=== PATIENT | female | born 1955 | race Caucasian/White ===

== ENCOUNTER 2016-09-06 14:04 | Outpatient (CLI) | payer MEDICARE | END 2016-09-06 14:05 | disposition home or self-care (01) | DX: N85.00 Endometrial hyperplasia, unspecified (principal); R93.8 Abnormal findings on diagnostic imaging of other specified body structures; D25.9 Leiomyoma of uterus, unspecified ==

== ENCOUNTER 2016-10-05 13:01 | Outpatient (CLI) | payer MEDICARE | END 2016-10-05 13:02 | disposition home or self-care (01) | DX: R74.8 Abnormal levels of other serum enzymes (principal) ==

== ENCOUNTER 2017-02-07 10:42 | Outpatient (CLI) | payer MEDICARE ==
[2017-02-07 12:56] LABS: HEMOGLOBIN A1C 0.4 g/dL
== END 2017-02-07 10:43 | disposition home or self-care (01) ==
LOC: LAB.N 10:42
PROVIDERS: ATTEND Nurse Practitioner Primary Care
DX: E11.65 Type 2 diabetes mellitus with hyperglycemia (principal)
CPT/HCPCS: 36415; 82947; 83036

== ENCOUNTER 2017-05-27 14:25 | Outpatient (CLI) | payer MEDICARE ==
--- NOTE | 2017-05-30 10:31 | Ultrasound Report ---
PELVIC ULTRASOUND: 05/27/2017 CLINICAL INDICATION: Endometrial hyperplasia. TECHNIQUE: Transabdominal pelvic ultrasound performed for global evaluation. Transvaginal pelvic ultr asound performed for detailed evaluation. Real-time scanning performed and static images obtained. COMPARISON: 09/06/2016. FINDINGS: The examination is markedly limited by patient's habitus and previous stroke, causing diff iculty with positioning. The uterus is anteverted, measuring 6.9 x 5.0 x 3.5 cm. The endometrium measures 6 mm where visualize d. The previously noted leiomyoma is no longer appreciated. Neither ovary was confidently identified on transabdominal or transvaginal scanning. No free fluid is seen. IMPRESSION: THICKENED ENDOMETRIUM FOR A POSTMENOPAUSAL PATIENT. NONVISUALIZATION OF BOTH OVARIES AND THE PREVIOUSLY NOTED LEIOMYOMA. JOB #: [id number] EXT JOB #:[id number]
== END 2017-05-27 14:26 | disposition home or self-care (01) ==
LOC: DI 14:25
PROVIDERS: ATTEND Obstetrics & Gynecology
DX: R93.8 Abnormal findings on diagnostic imaging of other specified body structures (principal)
CPT/HCPCS: 76830; 76856

== ENCOUNTER 2017-11-02 11:21 | Outpatient (CLI) | payer MEDICARE ==
[2017-11-02 14:56] LABS: HB2 TOTAL 12.8 g/dL; HEMOGLOBIN A1C 0.43 g/dL; HEMOGLOBIN A1C % 5.2 % (4.6-6.2)
== END 2017-11-02 11:22 | disposition home or self-care (01) ==
LOC: LAB.R 11:21
PROVIDERS: ATTEND Nurse Practitioner Primary Care
DX: E11.9 Type 2 diabetes mellitus without complications (principal); J02.9 Acute pharyngitis, unspecified
CPT/HCPCS: 83036; 87070; 87430

== ENCOUNTER 2017-12-23 08:50 | Outpatient (CLI) | payer MEDICARE ==
[2017-12-23 12:30] LABS: BASOPHILS % (AUTO) 0.3 %; EOSINOPHILS % (AUTO) 0.1 %; HGB - HEMOGLOBIN 11.6 g/dL (12.0-16.0); LYMPHOCYTES # (AUTO) 1.5 10^3/uL (1.5-3.5); LYMPHOCYTES % (AUTO) 39.6 %; MEAN CORPUSCULAR HEMOGLOBIN 29.9 pg (27.0-31.0); MEAN CORPUSCULAR HGB CONC 33.3 g/dL (32.0-36.0); MEAN CORPUSCULAR VOLUME 89.7 fL (81.0-99.0); MONOCYTES # (AUTO) 0.3 10^3/uL (0.0-1.0); MONOCYTES % (AUTO) 8.1 %; NEUTROPHILS # (AUTO) 1.9 10^3/uL (1.5-6.6); NEUTROPHILS % (AUTO) 51.9 %; PLT - PLATELET COUNT 158 10^3/uL (130-450); RED BLOOD COUNT 3.89 10^6/uL (4.20-5.40); RED CELL DISTRIBUTION WIDTH 14.9 % (12.0-15.0); WHITE BLOOD COUNT 3.7 x10^3/uL (4.8-10.8)
[2017-12-23 12:56] LABS: ALBUMIN/GLOBULIN RATIO 1.4 (1.0-2.2); ALKALINE PHOSPHATASE 125 IU/L (42-121); ALT ALANINE AMINOTRANSFERASE 17 IU/L (10-60); AST ASPARTATE AMINOTRANSFERASE 13 IU/L (10-42); BILIRUBIN,TOTAL 0.6 mg/dL (0.2-1.0); BUN - BLOOD UREA NITROGEN 20 mg/dL (6-20); CALCIUM 8.8 mg/dL (8.5-10.3); CARBON DIOXIDE - CO2 26 mmol/L (21-32); CHLORIDE 105 mmol/L (101-111); CHOLESTEROL 134 mg/dL; CREATININE 0.7 mg/dL (0.4-1.0); GFR - MDRD 85 (>89); GLUCOSE 82 mg/dL (70-100); HDL CHOLESTEROL 44 mg/dL; LDL CHOLESTEROL,CALCULATED 69 mg/dL; LDL/HDL RATIO 1.6 (<4.4); SODIUM 137 mmol/L (135-145); TOTAL PROTEIN 6.9 g/dL (6.7-8.2); VLDL CHOLESTEROL 21 mg/dL
[2017-12-23 13:19] LABS: HB2 TOTAL 12.7 g/dL; HEMOGLOBIN A1C 0.49 g/dL; HEMOGLOBIN A1C % 5.7 % (4.6-6.2)
== END 2017-12-23 08:51 | disposition home or self-care (01) ==
LOC: LAB.R 08:50
PROVIDERS: ATTEND Nurse Practitioner Primary Care
DX: E11.9 Type 2 diabetes mellitus without complications (principal); G47.33 Obstructive sleep apnea (adult) (pediatric); I10 Essential (primary) hypertension; E03.9 Hypothyroidism, unspecified; E78.5 Hyperlipidemia, unspecified; Z79.899 Other long term (current) drug therapy
CPT/HCPCS: 80053; 80061; 83036; 83721; 84443; 85025

== ENCOUNTER 2018-01-25 12:50 | Outpatient (CLI) | payer MEDICARE ==
--- NOTE | 2018-01-29 10:57 | DEXA Report ---
DEXA: 01/25/2018 CLINICAL INDICATION: Postmenopausal. TECHNIQUE: Dual energy x-ray absorptiometry (DXA) was performed on a [employer] system. Regions measured are the AP spine, femoral neck, and, if needed, forearm. COMPARISON: 06/21/2016. In accordance with the International Society for Clinical Densitometry (ISCD) guidelines, data from previous exams may be reanalyzed using current recommendations and techniques. This is done to allow a more accurate basis for comparison with the current study. FINDINGS Data for the lumbar spine is as follows: REGION BMD (g/cm/cm) T-SCORE Z-SCORE L1 1.381 2.1 2.2 L2 1.520 2.7 2.7 L3 1.393 1.6 1.7 L4 1.567 3.1 3.1 L1-L4 1.471 2.4 2.5 NOTE: All evaluable vertebrae are used for classification. The data for the hip is as follows: REGION BMD (g/cm/cm) T-SCORE Z-SCORE Neck 0.851 -1.3 -0.8 TOTAL 0.916 -0.7 -0.6 NOTE: The femoral neck or total proximal femur, whichever is lowest, is used for classification. DEXA RESULTS SUMMARY: Spine 3 SCAN DATE AGE BMD T-SCORE BMD CHANGE VS BASELINE BMD CHANGE VS PREVIOUS 01/25/2018 60.6 1.471 -- -0.103* -6.5* 06/21/2016 59.0 1.574 -- -- -- * Denotes significant change at the 95% confidence level. Denotes dissimilar scan types or analysis methods. DEXA RESULTS SUMMARY: Total hip 3 SCAN DATE AGE BMD T-SCORE BMD CHANGE VS BASELINE BMD CHANGE VS PREVIOUS 01/25/2018 60.6 0.916 -- -0.069* -7.0* 06/21/2016 61.0 0.985 -- -- -- * Denotes significant change at the 95% confidence level. Denotes dissimilar scan types or analysis methods. IMPRESSION 1. WHO CLASSIFICATION BASED ON THE INTERNATIONAL REFERENCE STANDARD IS OSTEOPENIA (REFERENCE LEFT FEMORAL NECK). FRACTURE RISK IS INCREASED. 2. THERE HAS BEEN STATISTICALLY SIGNIFICANT INTERVAL DECREASE IN BONE MINERAL DENSITY OF THE LEFT HIP AND LUMBAR SPINE FROM 06/21/2016. RECOMMENDATION: Patients with diagnosis of osteoporosis or osteopenia should have regular bone mineral density assessment. For those eligible for Medicare, routine testing is allowed once every 2 years. Testing frequency can be increased for patients who have rapidly progressing disease or for those who are receiving medical therapy to restore bone mass. COMMENT World Health Organization (WHO) definitions for osteoporosis and osteopenia: NORMAL BMD: T-score at 1.0 or higher, fracture risk is low. OSTEOPENIA BMD: T-score between 1.0 and -2.5, fracture risk is increased. OSTEOPOROSIS BMD: T-score at 2.5 or lower, fracture risk high. National Osteoporosis Foundation recommends: 1. Obtain adequate dietary calcium (at least 1200 mg per day) and vitamin D (400 -800 international units per day). 2. Participate, as appropriate, in regular weightbearing and muscle- strengthening exercise. 3. Avoid tobacco use and reduce alcohol and caffeine intake. 4. For more detailed information see the website at www.NOF.org. TD: 01/25/2018 15:20 CHRISTINA
== END 2018-01-25 12:51 | disposition home or self-care (01) ==
LOC: DI 12:50
PROVIDERS: ATTEND Nurse Practitioner Primary Care
DX: Z13.820 Encounter for screening for osteoporosis (principal); Z78.0 Asymptomatic menopausal state; M85.852 Other specified disorders of bone density and structure, left thigh
CPT/HCPCS: 77080

== ENCOUNTER 2018-01-25 12:51 | Outpatient (CLI) | payer MEDICARE ==
--- NOTE | 2018-01-26 17:05 | Mammography Report ---
DIGITAL SCREENING MAMMOGRAM: 01/25/2018 CLINICAL INDICATION: A 62-year-old with history of late childbearing, family history of breast cancer for screening. TECHNIQUE: Routine CC and MLO projections were obtained of the breasts. COMPARISON: 06/21/2016, 05/13/2011, 12/16/2007. FINDINGS: The breasts again demonstrate scattered fibroglandular densities. Positioning on the right side is limited by the patient's previous stroke. Punctate, typically benign calcifications are present. No suspicious masses, clustered microcalcifications, or regions of architectural distortion are identified. IMPRESSION: BENIGN FINDINGS. RECOMMENDATION: Routine annual screening unless otherwise clinically indicated. BIRADS category 2 benign findings. STANDARD QUALIFYING STATEMENTS 1. This examination was reviewed with the aid of Computed-Aided Detection (CAD). 2. A negative or benign imaging report should not delay biopsy if clinically suspicious findings are present. Consider surgical consultation if warranted. More than 5% of cancers are not identified by imaging. 3. Dense breasts may obscure an underlying neoplasm. TD: 01/26/2018 15:12
== END 2018-01-25 12:52 | disposition home or self-care (01) ==
LOC: DI 12:51
PROVIDERS: ATTEND Nurse Practitioner Primary Care
DX: Z12.31 Encounter for screening mammogram for malignant neoplasm of breast (principal); Z80.3 Family history of malignant neoplasm of breast
CPT/HCPCS: 77067

== ENCOUNTER 2018-02-14 08:00 | Outpatient (CLI) | payer MEDICARE | END 2018-02-14 23:59 | LOC: LAB.R 08:00 | PROVIDERS: ATTEND Nurse Practitioner Primary Care | DX: E03.9 Hypothyroidism, unspecified (principal); Z51.81 Encounter for therapeutic drug level monitoring | CPT/HCPCS: 84443 ==

== ENCOUNTER 2018-04-21 09:50 | Outpatient (CLI) | payer MEDICARE | END 2018-04-21 09:51 | disposition home or self-care (01) | LOC: LAB.R 09:50 | PROVIDERS: ATTEND Nurse Practitioner Primary Care | DX: E03.9 Hypothyroidism, unspecified (principal) | CPT/HCPCS: 84443 ==

== ENCOUNTER 2018-09-27 08:00 | Outpatient (CLI) | payer MEDICARE ==
[2018-09-27 13:30] LABS: BASOPHILS % (AUTO) 0.1 %; HGB - HEMOGLOBIN 12.1 g/dL (12.0-16.0); LYMPHOCYTES # (AUTO) 1.2 10^3/uL (1.5-3.5); LYMPHOCYTES % (AUTO) 24.1 %; MEAN CORPUSCULAR HEMOGLOBIN 29.9 pg (27.0-31.0); MEAN CORPUSCULAR HGB CONC 34.4 g/dL (32.0-36.0); MEAN CORPUSCULAR VOLUME 86.8 fL (81.0-99.0); MEAN PLATELET VOLUME 8.9 fL (7.9-10.8); MONOCYTES # (AUTO) 0.4 10^3/uL (0.0-1.0); MONOCYTES % (AUTO) 7.3 %; NEUTROPHILS # (AUTO) 3.3 10^3/uL (1.5-6.6); NEUTROPHILS % (AUTO) 68.5 %; PLT - PLATELET COUNT 206 10^3/uL (130-450); RED BLOOD COUNT 4.04 10^6/uL (4.20-5.40); WHITE BLOOD COUNT 4.9 x10^3/uL (4.8-10.8)
[2018-09-27 13:59] LABS: ALBUMIN 3.7 g/dL (3.2-5.5); ALBUMIN/GLOBULIN RATIO 1.2 (1.0-2.2); ALKALINE PHOSPHATASE 165 IU/L (42-121); ALT ALANINE AMINOTRANSFERASE 16 IU/L (10-60); AST ASPARTATE AMINOTRANSFERASE 16 IU/L (10-42); BILIRUBIN,TOTAL 0.5 mg/dL (0.2-1.0); BUN - BLOOD UREA NITROGEN 19 mg/dL (6-20); CALCIUM 8.8 mg/dL (8.5-10.3); CARBON DIOXIDE - CO2 27 mmol/L (21-32); CHLORIDE 100 mmol/L (101-111); CHOL/HDL RATIO 2.8 (<4.4); CHOLESTEROL 117 mg/dL; CREATININE 0.9 mg/dL (0.4-1.0); GFR - MDRD 64 (>89); GLUCOSE 89 mg/dL (70-100); HDL CHOLESTEROL 42 mg/dL; LDL CHOLESTEROL,CALCULATED 60 mg/dL; LDL/HDL RATIO 1.4 (<4.4); SODIUM 138 mmol/L (135-145); TOTAL PROTEIN 6.7 g/dL (6.7-8.2); VLDL CHOLESTEROL 15 mg/dL
[2018-09-27 14:06] LABS: HB2 TOTAL 12.3 g/dL; HEMOGLOBIN A1C 0.43 g/dL; HEMOGLOBIN A1C % 5.4 % (4.6-6.2)
== END 2018-09-27 23:59 | disposition home or self-care (01) ==
LOC: LAB.R 08:00
PROVIDERS: ATTEND Nurse Practitioner Primary Care
DX: E78.5 Hyperlipidemia, unspecified (principal); Z51.81 Encounter for therapeutic drug level monitoring; E03.9 Hypothyroidism, unspecified; I10 Essential (primary) hypertension; D64.9 Anemia, unspecified
CPT/HCPCS: 80053; 80061; 83036; 83721; 84443; 85025

== ENCOUNTER 2019-02-07 20:41 | Outpatient (CLI) | payer MEDICARE | END 2019-02-07 20:42 | disposition critical access hospital (66) | LOC: EMS 20:41 | PROVIDERS: ATTEND Surgery | DX: M54.5 Low back pain (principal); R20.2 Paresthesia of skin | CPT/HCPCS: A0425; A0429 ==

== ENCOUNTER 2019-02-07 21:02 | Emergency (ER) | payer MEDICARE ==
--- NOTE | 2019-02-07 21:11 | ED Physician Documentation ---
PD HPI BACK PAIN - Stated complaint Stated Complaint: BACK PAIN - History obtained from History obtained from: Patient - History of Present Illness Timing - onset: How many weeks ago (1) Timing - duration: Weeks (1) Timing - details: Gradual onset Pain level now: 10 Location: Lower, Right Quality: Pain, Spasm Associated symptoms: No: Fever, Weakness, Numbness, Incontinent of urine, Incontinent of stool Improves with: Nothing Similar symptoms before: No diagnosis Recently seen: Not recently seen - Additional information Additional information: This is a 63-year-old woman who was brought in by ambulance for pain in her right lower back and she says she has "sciatica most likely". She is been having pain for about a week but it just got progressively more severe and to night she went to sit down in her chair and the "sit down muscles" just would not work she cannot collapsed backwards into the chair. She was unable to get back up and called the ambulance to bring her to the ER. She has not taken anything at home for the pain or iced it. She had a stroke in 2011 that left her right upper extremity "useless". She normally walks with a cane at home but is having difficulty managing that and has not even been able to get up to get something to drink. She feels like she is a little bit dehydrated because of that. She has had recurrent issues with her back that she is been prescribed NSAIDs and codeine for in the past but she denies ever having had any imaging studies. No new injury to her lower back. She has had no urinary or stool incontinence and denies any dysuria. 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 - Present Medications Home Medications: Ambulatory Orders Medication Instructions Recorded Confirmed Citalopram [CeleXA] 20 mg PO DAILY 11/03/13 08/22/14 Levothyroxine [Synthroid] 112 mcg PO QDAC 11/03/13 08/22/14 Lisinopril [Prinivil] 20 mg PO DAILY 11/03/13 08/22/14 Metformin HCl [Fortamet] 500 mg PO 3-4XD 11/03/13 08/22/14 Atorvastatin [Lipitor] 20 mg PO DAILY 08/22/14 08/22/14 Promethazine [Phenergan] 25 mg PO Q6H PRN #10 tab 08/22/14 Tamsulosin [Flomax] 0.4 mg PO DAILY #5 capsule 08/22/14 oxyCODONE/ACET 5/325 [Percocet 5 1 each PO Q4-6H PRN #15 tablet 08/22/14 mg/325 mg] Oxycodone HCl/Acetaminophen 1 - 2 each PO Q6H PRN #10 tablet 02/07/19 [Percocet 5-325 mg Tablet] - Allergies Allergies/Adverse Reactions: Allergies Allergy/AdvReac Type Severity Reaction Status Date / Time No Known Drug Allergies Allergy Verified 02/07/19 21:17 - Living Situation Living Situation: reports: Alone Living Arrangement: reports: At home - Social History Does the pt smoke?: No Smoking Status: Never smoker Does the pt drink ETOH?: No Does the pt have substance abuse?: No - Immunizations Immunizations are current?: Yes - POLST Patient has POLST: No PD ED PE NORMAL - Vitals Vital signs reviewed: Yes (Obese 63-year-old woman who moans out in any pain with any movement of the ) - General General: Alert and oriented X 3, Well developed/nourished - HEENT HEENT: Atraumatic - Cardiac Cardiac: RRR, Strong equal pulses - Respiratory Respiratory: No respiratory distress - Abdomen Abdomen: Other (Obese) - Back Back: Other (There is tenderness around the right SI joint and in the right lumbar paraspinal muscles) - Derm Derm: Normal color, Warm and dry, No rash - Extremities Extremities: No deformity, No edema - Neuro Neuro: Alert and oriented X 3, Normal speech, Other (Does not move the right upper extremity. She is able to dorsiflex the great toes bilaterally.Dorsiflexion of the right foot elicits pain in the lower back and limits the exam.). No: No sensory deficit Results - Vitals Vitals: Vital Signs - 24 hr 02/07/19 21:14 Temperature 36.0 C L Heart Rate 83 Respiratory 16 Rate Blood Pressure 154/65 H O2 Saturation 97 Oxygen O2 Source Room air - Labs Labs: Laboratory Tests 02/07/19 23:36 Urine Color DARK YELLOW Urine Clarity HAZY Urine pH 6.0 Ur Specific [place] 1.025 Urine Protein TRACE Urine Glucose (UA) NEGATIVE Urine Ketones TRACE Urine Occult Blood TRACE-INTA Urine Nitrite NEGATIVE Urine Bilirubin NEGATIVE Urine Urobilinogen 1 (NORMAL) Ur Leukocyte Esterase MODERATE H Urine RBC 6-10 H Urine WBC 11-25 H Ur Squamous Epith Cells MOD Squamous H Urine Bacteria Few Urine Mucus Few Strands Ur Microscopic Review INDICATED Urine Culture Comments NOT INDICATED PD MEDICAL DECISION MAKING - ED course ED course: Patient was given 60 of Toradol IM was still having pretty significant pain and I saw that she been prescribed oxycodone in the past several years ago. She tolerated that well and I gave her one oxycodone tablet. She was improved enough and that she was able to get up and ambulate to the bathroom with a walker. Her urinalysis is contaminated and I would discuss this with her doing a catheter specimen but she is not had any symptoms and declines the catheter with plans to follow-up with her primary care provider if she develops any urinary symptoms. Departure - Departure Clinical Impression: Back pain Qualifiers: Back pain location: low back pain Chronicity: acute Back pain laterality: right Sciatica presence: with sciatica Sciatica laterality: sciatica of right side Qualified Code(s): M54.41 - Lumbago with sciatica, right side Condition: Good Instructions: ED Spasm Back No Trauma, ED Sciatica Follow-Up: Aramis Mayorga MD [Primary Care Provider] - Prescriptions: Oxycodone HCl/Acetaminophen [Percocet 5-325 mg Tablet] 1 - 2 each PO Q6H PRN #10 tablet PRN Reason: pain Comments: Take the naproxen as needed daily for pain. Give a prescription for a few oxycodone tablets to take for the acute pain. Ice may also help alleviate some of the discomfort. Follow-up with your primary care provider for further pain management and further work-up as needed. Have the urine tested at your primary care provider's office if you develop any urinary symptoms.
[2019-02-07] MEDS ORDERED: KETOROLAC 60 MG/2 ML VIAL IM STA (21:32)
[2019-02-07] MEDS ORDERED: oxyCODONE 5 MG TABLET PO STA (22:26)
[2019-02-07 23:45] LABS: GLUCOSE, URINE (UA) NEGATIVE (NEGATIVE); KETONES,URINE (UA) TRACE mg/dL (NEGATIVE); LEUKOCYTE ESTERASE, URINE MODERATE (NEGATIVE); NITRITE,URINE NEGATIVE (NEGATIVE); OCCULT BLOOD,URINE TRACE-INTA (NEGATIVE); PROTEIN,URINE TRACE mg/dL (NEGATIVE); UROBILINOGEN,URINE 1 (NORMAL) E.U./dL (NORMAL)
[2019-02-07 23:47] LABS: CLARITY,URINE HAZY (CLEAR)
[2019-02-07 23:50] LABS: BILIRUBIN,URINE NEGATIVE (NEGATIVE); ICTOTEST,URINE NEGATIVE
[2019-02-07 23:54] LABS: BACTERIA,URINE Few /HPF (None Seen); MUCUS,URINE Few Strands; SQUAMOUS EPITHELIAL CELL,UR MOD Squamous (<= Few)
[2019-02-08 00:57] VITALS: BP 134/56
== END 2019-02-08 00:57 | disposition home or self-care (01) ==
LOC: EDUNIT# → ED 21:02
DX: M54.41 Lumbago with sciatica, right side (principal); I69.331 Monoplegia of upper limb following cerebral infarction affecting right dominant side; E66.9 Obesity, unspecified; I10 Essential (primary) hypertension; E11.9 Type 2 diabetes mellitus without complications; Z68.42 Body mass index [BMI] 45.0-49.9, adult; Z79.899 Other long term (current) drug therapy
CPT/HCPCS: 81001; 96372; 99283; A9270; 81003; 87086

== ENCOUNTER 2019-02-09 10:07 | Outpatient (CLI) | payer MEDICARE ==
--- NOTE | 2019-02-09 11:23 | XRAY Report ---
Reason: LUMBAR RADICULOPATHY Procedure Date: 02/09/2019 Accession Number: [id number] / [id number] Procedure: XR - Lumbar Spine 2 View CPT Code: FULL RESULT: EXAM: LUMBOSACRAL SPINE RADIOGRAPHY EXAM DATE: 02/09/2019 10:59 AM. CLINICAL HISTORY: LUMBAR RADICULOPATHY. COMPARISONS: None. TECHNIQUE: 3 views. FINDINGS: Alignment: Normal lordosis. Mild levoconvex scoliosis. Bones: Five [id number] lumbar vertebral bodies are present. No fractures or bone lesions. L5-S1 transitional vertebra. Disks: No significant disk height narrowing. No subluxation. Facets: Bilateral L4-L5 and L5-S1 facet arthropathy. Sacroiliac Joints: Unremarkable. Soft Tissues: Radiopaque lower pole left renal calculus. IMPRESSION: 1. No compression fracture. 2. Mild levoconvex lumbar scoliosis. 3. Multilevel facet arthropathy without significant degenerative disk disease radiopaque right renal calculus RADIA
== END 2019-02-09 10:08 | disposition home or self-care (01) ==
LOC: DI 10:07
PROVIDERS: ATTEND Family Medicine
DX: M47.816 Spondylosis without myelopathy or radiculopathy, lumbar region (principal); M41.9 Scoliosis, unspecified
CPT/HCPCS: 72100

== ENCOUNTER 2019-06-05 10:48 | Outpatient (CLI) | payer MEDICARE ==
[2019-06-05 11:14] LABS: BASOPHILS % (AUTO) 0.1 %; HGB - HEMOGLOBIN 12.2 g/dL (12.0-16.0); LYMPHOCYTES # (AUTO) 1.6 10^3/uL (1.5-3.5); LYMPHOCYTES % (AUTO) 22.9 %; MEAN CORPUSCULAR HEMOGLOBIN 28.4 pg (27.0-31.0); MEAN CORPUSCULAR HGB CONC 31.3 g/dL (32.0-36.0); MEAN CORPUSCULAR VOLUME 90.7 fL (81.0-99.0); MEAN PLATELET VOLUME 10.6 fL (7.9-10.8); MONOCYTES # (AUTO) 0.5 10^3/uL (0.0-1.0); MONOCYTES % (AUTO) 6.9 %; NEUTROPHILS # (AUTO) 4.7 10^3/uL (1.5-6.6); NEUTROPHILS % (AUTO) 69.7 %; PLT - PLATELET COUNT 190 10^3/uL (130-450); RED CELL DISTRIBUTION WIDTH 13.8 % (12.0-15.0); WHITE BLOOD COUNT 6.8 x10^3/uL (4.8-10.8)
[2019-06-05 11:27] LABS: CALCIUM 9.2 mg/dL (8.5-10.3); CREATININE 0.7 mg/dL (0.4-1.0); MAGNESIUM 2.1 mg/dL (1.7-2.8); URIC ACID 7.1 mg/dL (2.6-7.2)
[2019-06-05 11:32] LABS: HB2 TOTAL 12.8 g/dL; HEMOGLOBIN A1C 0.49 g/dL; HEMOGLOBIN A1C % 5.7 % (4.6-6.2)
[2019-06-05 12:02] LABS: THYROID STIMULATING HORMONE 2.89 uIU/mL (0.34-5.60)
[2019-06-05 12:04] LABS: FREE T4 (FREE THYROXINE) 0.89 ng/dL (0.58-1.64)
== END 2019-06-05 10:49 | disposition home or self-care (01) ==
LOC: LAB 10:48
PROVIDERS: ATTEND Family Medicine
DX: E11.9 Type 2 diabetes mellitus without complications (principal); I10 Essential (primary) hypertension; E03.9 Hypothyroidism, unspecified; M79.604 Pain in right leg; N20.0 Calculus of kidney
CPT/HCPCS: 36415; 80048; 83036; 83735; 84439; 84443; 84481; 84550; 85025

== ENCOUNTER 2019-06-06 17:02 | Outpatient (CLI) | payer MEDICARE ==
--- NOTE | 2019-06-07 10:05 | Ultrasound Report ---
Reason: KIDNEY STONES Procedure Date: 06/06/2019 Accession Number: [id number] / [id number] Procedure: US - Retroperitoneal CPT Code: FULL RESULT: EXAM: RENAL ULTRASOUND EXAM DATE: 06/06/2019 05:37 PM. CLINICAL HISTORY: Kidney stones. COMPARISON: None. TECHNIQUE: Real-time scanning was performed with static images obtained. Suboptimal image quality due to the patient's body habitus is noted. FINDINGS: Right Kidney: 11.8 x 5.7 x 8 cm. No shadowing stones, contour-deforming masses, or hydronephrosis. Left Kidney: 13.4 x 6 x 5.2 cm. No shadowing stones, contour-deforming masses, or hydronephrosis. Bladder: Only the left jets seen. The prevoid bladder volume was 68 cc. The postvoid bladder volume was not available as the patient unable to void, likely due to the small prevoid volume. No bladder mass, stone or filling defect identified. Other: None. IMPRESSION: Negative for shadowing renal stone, hydronephrosis or contour-deforming renal mass. RADIA
== END 2019-06-06 17:03 | disposition home or self-care (01) ==
LOC: DI 17:02
PROVIDERS: ATTEND Family Medicine
DX: N20.0 Calculus of kidney (principal)
CPT/HCPCS: 76770

== ENCOUNTER 2019-09-05 11:16 | Outpatient (CLI) | payer MEDICARE ==
[2019-09-05 12:30] VITALS: BP 140/74
--- NOTE | 2019-09-05 12:30 | SLEEP CARE CONSULTATION ---
Information from patient questionnaire entered by Brittney Durbin. I have reviewed and concur with the information entered by Brittney Durbin. This document represents the service I personally performed and the decisions made by me, Beth Arauz, RN, MSN, CLAY ARTIST. History of Present Illness Reason for Visit: New patient, Previously diagnosed sleep apnea (diagnosed about 30 years ago, no sleep studies since. Has lost about 30 pounds since last diagnosed this past year. ), Other (Currently using a ResMed CPAP with humidifier set at a low pressure. It does not have data card. ) Chief Complaint: reports: Unrefreshed sleep, Fatigue, Other (updating old CPAP ) Duration of Symptoms: years even with long sleep periods of 12 hours Usual bedtime: 11:30 Time it takes to fall asleep: 1 hour Snores at night: Yes (even with CPAP / nasal mask 3 months old) Observed to quit breathing while asleep: No (single and sleeps alone ) Number of times waking at night: 2-3 Reasons for waking at night: reports: Snoring, Bathroom, Other (unknown) Toss, Turn, or Twitch while sleeping: No Recalls having dreams: Yes Usually gets out of bed at: 10 am Feels refreshed in the morning: No Morning headache: No Sleepy or fatigued during the day: Yes Ever fallen asleep while driving: No Takes day naps: Yes (most days mid afternoon for about 30minutes ) Dreams during day naps: No Prior sleep studies: Yes (30 years ago) Year and Where: [place] - Parasomnia Symptoms Ever been unable to move upon waking from sleep: No Walks in sleep: No Talks in sleep: No Ever acted out dreams in sleep: No Ever felt weak in the knees when startled or emotional: No Bothered by creepy, crawly, restless sensations in legs: Yes ( nightly relieved with movement now uses OTC restless leg med with relief) Problems with memory or concentration: Yes Subjective Patient concerns: reports: mask discomfort (nasal bridge soreness ). denies: aerophagia, air blowing in eyes (wakes with dry eyes ), mask leak noise, condensation in mask/hose, nasal congestion, dry mouth, nose, throat, epistaxis Observed to snore while using device: No Current pressure setting perceived as: comfortable On therapy, patient: reports: sleeping better, awakening more refreshed, being more awake and alert during the day, more rested overall (but persistent fatigue). denies: drowsiness while driving Initial [place] Sleepiness Scale score: 15 Past Medical History Past Medical History: reports: Hypertension, Diabetes, Hypothyroidism, Depression, Other (stroke 2012 with right side paralysis and weakness, hyperlipidemia ) Social History The patient's occupation is a [employer]. Patient is and lives in [place]. Have you smoked in the past 12 months: No Alcohol use: Yes Alcohol amount and frequency: 1 drink every few months Caffeine use: Yes Caffeine amount and frequency: 3 cups of tea day Family History Family Hx Sleep Apnea: Mother: Snoring ( ) Allergies and Home Medications Known drug allergies: No Home medication list reviewed: Yes Allergy and home medication list: metformin 500mg bid citolapram 20mg daily lisinopril 20mg daily [id number] daily atorvastatin 20mg daily Quiepine HS for sleep Trazadone 50mg HS for sleep melatonin 5mg nightly cinnamon daily cranberry tab daily Vitamin D daily magnesium 200mg daily apple cider vinegar gummies OTC restless leg nightly Review of Systems Cardiovascular: reports: high blood pressure. denies: palpitations, chest pain, irregular heart rate or pulse, leg or foot swelling, have to sleep sitting up, other Respiratory: denies: shortness of breath, wheeze, sputum production, chronic cough, other Gastrointestinal: denies: heartburn, difficulty swallowing, nausea, vomitting, diarrhea, abdominal pain, other Urinary: reports: incontinence. denies: frequency, urgency, impotence, other Neurological: reports: gait or balance problems, other (stroke 2012 ). denies: headaches, seizure, head trauma, disorientation, speech dysfunction, fainting or unconsciousness Psychiatric: reports: depression. denies: Attention Deficit Hyperactivity, anxiety, mood disorder, claustrophobia, other Ear/Nose/Throat: reports: wisdom teeth removed. denies: nasal congestion, sinus problems, nose bleeds, dry mouth/throat, hoarseness, injury to nose, tonsillectomy, other Endocrine: reports: thyroid disease, sluggishness Musculoskeletal: reports: mobility problems. denies: joint pain, neck pain, back pain, joint swelling, muscle pain or cramping, other Immunologic: reports: allergies to food or environment. denies: sneezing, rash, itching, other Physical Exam Blood Pressure: 140/74 Cuff size: long Heart Rate: 63 O2 Saturation: 97 Neck circumference: 17.5 HEENT: No craniofacial malformation Nostrils: patent to airflow Turbinates: swollen Septum: midline Mouth and throat: narrow oropharynx Soft palate: long Hard palate: normal Uvula: normal Uvula visualization: 25% Mallampati Class III Tongue: normal in size Tonsils: small Neck: normal w/o lymphadenopathy or thyromegaly Heart: regular rate and rhythm Lungs: clear bilaterally Abdomen: soft, non-tender, other: (large) Extremities: no edema or clubbing Neurologic: other: (right arm flaccid with no hand tobacco scrap sifter. right foot drop stated but walks with cane well) Impression and Plan 1. Suspected Obstructive Sleep Apnea-Hypopnea Syndrome, as previously diagnosed about 30 years ago in [place]. No sleep studies available and patient thinks it was mild in severity. She has lost abotu 30 pounds since sleep study the past ye ar and is continuing to work on weight loss. She currently uses CPAP at unknown comfortable pressure with a 20 year old CPAP that does not have a data card and probably only has hours of use. She uses a nasal mask that is causing nasal irritation to nasal bridge and buys supplies online at [employer]. Despite nightly use of CPAP of 11-12 hours, she has awakened to snoring, and has frequent awakening during the night, unrefreshed sleep, cognitive impairment, and excessive daytime sleepiness requiring a daily afternoon nap. Narrow oropharynx and obesity are common predisposing factors for obstructive sleep apnea-hypopnea syndrome. I recommend proceeding to polysomnography to re- evaluate to confirm the diagnosis and to assess severity. If the patient has significant sleep disordered breathing, a manual CPAP titration study will also be performed to find the optimal treatment pressure. I informed the patient of what the sleep studies involve and after some discussion, obtained agreement to proceed. The pathophysiology of obstructive sleep apnea-hypopnea syndrome was discussed with the patient and health risks of cardiovascular and cerebrovascular disease if not treated. AASM brochure for obstructive sleep apnea-hypopnea syndrome declined. Risks of drowsy driving discussed in detail and patient advised to avoid long distance driving and to loop puller at the first sign of drowsiness. Patient denies drowsy driving. The goal is once patient apnea is diagnosed, I can update her CPAP and supplies. * Schedule polysomnography +- manual CPAP titration study and return in 1-2 weeks after the study to discuss result and initiate therapy. * Avoid long distance driving or driving when feeling sleepy. * Avoid alcohol, sedative and muscle relaxant around bedtime. * Continue to lose weight. * Review instructions provided by trained office staff on how to prepare for the sleep study. * Return for follow-up after sleep study completed. Time Spent with Patient (minutes): 48 I spent 100% of this visit face to face with the patient with greater than 50% of this was spent time counseling the patient and coordination of care.
== END 2019-09-05 11:17 | disposition home or self-care (01) ==
LOC: SC 11:16
PROVIDERS: ATTEND Nurse Practitioner Family
DX: G47.33 Obstructive sleep apnea (adult) (pediatric) (principal)
CPT/HCPCS: 99204; G0463; 99212

== ENCOUNTER 2019-09-10 20:23 | Outpatient (CLI) | payer MEDICARE | END 2019-09-10 20:24 | disposition home or self-care (01) | LOC: SC 20:23 | PROVIDERS: ATTEND Internal Medicine Pulmonary Disease | DX: G47.33 Obstructive sleep apnea (adult) (pediatric) (principal); G47.61 Periodic limb movement disorder; E66.01 Morbid (severe) obesity due to excess calories; Z68.42 Body mass index [BMI] 45.0-49.9, adult | CPT/HCPCS: 95810 ==

== ENCOUNTER 2019-09-19 16:28 | Outpatient (CLI) | payer MEDICARE ==
[2019-09-19 17:26] VITALS: BP 142/70
--- NOTE | 2019-09-19 17:27 | SLEEP CARE CONSULTATION ---
Information from patient questionnaire entered by Brittney Durbin. I have reviewed and concur with the information entered by Brittney Durbin. This document represents the service I personally performed and the decisions made by me, Beth Arauz, RN, MSN, ROCKET ENGINE TESTER. History of Present Illness Initial [place] Sleepiness Scale score: 15 Current [place] Sleepiness Scale score: 11 Additional HPI information: RONAK JOHN returns for follow up and results of the recently performed polysomnography. I explained the pathophysiology behind obstructive sleep apnea. We then spent quite a bit of time discussing different treatment options. For mild obstructive sleep apnea, surgery and oral appliance are alternatives to nasal CPAP therapy but in moderate or severe cases, nasal CPAP is the most effective and reliable treatment. I reviewed the impact of weight changes on sleep apnea and strongly recommended losing weight. After some discussion, the patient opted to go with the nasal CPAP therapy. I discussed having a manual titration study to find optimal treament pressure or using autoCPAP. The patient would prefer to try autoCPAP. Nasal autoCPAP set at [id number] will be ordered with rationale explained. A manual titration study will be ordered if unable to find optimal pressure with office adjustments. I explained how CPAP machine works with sample devices [employer] Dreamstation and [employer] [id number] and what to expect when using the machine. Using CPAP every night in order to get used to it was emphasized. Patient advised to put CPAP mask on before getting into bed so as not to fall asleep without CPAP. To assist acclimation to CPAP use, it could also be used for a short time during day while reading or watching TV. The patient was instructed to call the CPAP supplier to discuss any mechanical problem that may occur. If the mask given is uncomfortable or is difficult to keep on through the night even with adjustment, contact the CPAP supplier as many will replace with another mask style if notified before 30 days. If snoring or perceives is not getting enough air or too much air from the machine, notify this office. AASM patient education PAP tips reviewed and given to patient. Patient counseled not drink alcohol less than 4 hours before bedtime as it can increase snoring and apnea. Patient was cautioned about risks of drowsy driving until sleepiness symptoms resolve. Patient denies drowsy driving. Sleep Study - Results Polysomnography/Home Sleep Study results: The quality of the study is good. The patient had normal sleep efficiency. The sleep architecture was abnormal for sleep fragmentation and reduced amount of time spent in REM and slow wave sleep (N3). Respiratory monitoring showed mild obstructive sleep apnea-hypopnea (AHI = 6.3) associated with frequent arousals, oxyhemoglobin desaturation and minimal hypoxia (naveen oxygen saturation of 89%). The respiratory events occurred mainly during supine sleep (supine AHI = 9.0; non-supine = 6.29). Snore was loud in intensity. There was moderate periodic leg movement of sleep contributing to the sleep fragmentation. Cardiac rhythm was normal sinus rhythm without significant arrhythmia. No abnormal behavior (parasomnia) observed during the night. Allergies and Home Medications Known drug allergies: No Home medication list reviewed: Yes (no changes from initial visit) Review of Systems Review of systems same as previous: Yes Physical Exam Blood Pressure: 142/70 Cuff size: long Heart Rate: 64 O2 Saturation: 98 Height: 5 ft 7 in Weight: 292 lb 9.6 oz Weight change since last visit: gained 6 pounds Body Mass Index: 45.8 BMI Classification: Obesity Class 3 Impression and Plan 1. Obstructive Sleep Apnea-Hypopnea Syndrome, mild, with lowest oxygen saturation of 89%. Probably this is the cause of the patients symptoms of unrefreshed sleep, and excessive daytime sleepiness. Currently she is using a 30 year old CPAP and in need of updated CPAP supplies. She has lost 30 pounds since diagnosed initially with sleep apnea and used her CPAP the night before her sleep study as she has difficulty sleeping without it. Use of her CPAP the night before her sleep study can have benefit beyond 24 hours affecting test results. Positive pressure therapy could benefit her cerebrovascular disease. As mentioned above, the patient will have her CPAP updated to autoCPAP therapy with pressure set at 5-15 cmH2O. A manual titration study will be completed if unable to find optimal treatment pressure with office adjustments. Compliance guidelines also reviewed. A copy of compliance guidelines will be given for reference at check . 2. Periodic limb movement, moderate, that did fragment patients sleep. Periodic limb movement of sleep (PLMS) is characterized by episodes of repetitive limb movements that occur during sleep and usually involve the lower limbs. The etiology is unknown but can be associated with restless leg syndrome (RLS), neuropathy, spinal cord diseases, kidney disease, rheumatological disorders, narcolepsy, obstructive sleep apnea, and REM sleep behavior disorder. Other factors that can increase PLMS and/or RLS are heredity and iron deficiency as reflected by a low serum ferritin level below 50 to 75mcg / L. Several medications can precipitate or aggravate PLMS such as selective serotonin re-u ptake inhibitor antidepressants, tricyclic antidepressants, lithium, and dopamine receptor antagonists with the exception of bupropion. Caffeine can also aggravate PLMS and should be avoided. Sleep hygiene methods can also improve sleep as well as lifestyle changes such as regular exercise. Patient was advised that further evaluation is indicated and to follow up with her PCP to evaluate if she has iron deficiency anemia as a possible secondary cause. Her antidepressants could also be affecting her PLMS/ RLS symptoms. I also explained to patient that good control of her apnea could also reduce her leg symptoms. Consideration of changing antidepressant to bupropion would be last to consider to control symptoms if indicated by her PCP. * Update CPAP and set at auto CPAP therapy, pressure at 5-15 cm H2O. * Attempt to lose weight. * Avoid alcohol consumption near bedtime. * The patient is again cautioned about driving until sleepiness completely resolves. * Follow up with PCP for further evaluation of PLMS / RLS such as noted above. * Return one month after CPAP obtained. I will assess response to therapy and compliance at that time. Time Spent with Patient (minutes): 35 I spent 100% of this visit face to face with the patient with greater than 50% of this was spent time counseling the patient and coordination of care.
== END 2019-09-19 16:29 | disposition home or self-care (01) ==
LOC: SC 16:28
PROVIDERS: ATTEND Nurse Practitioner Family
DX: G47.33 Obstructive sleep apnea (adult) (pediatric) (principal); G47.61 Periodic limb movement disorder; E66.9 Obesity, unspecified; Z68.42 Body mass index [BMI] 45.0-49.9, adult
CPT/HCPCS: 99214; G0463; 99212

== ENCOUNTER 2019-12-31 15:50 | Outpatient (CLI) | payer MEDICARE ==
--- NOTE | 2019-12-31 14:04 | SLEEP CARE CONSULTATION ---
Information from patient questionnaire entered by Jillian Alonzo. I have reviewed and concur with the information entered by Jillian Alonzo. This document represents the service I personally performed and the decisions made by me, Beth Arauz, RN, MSN, RECOATING MACHINE OPERATOR. History of Present Illness Service Date and Time: 12/31/2019 1330 Previous diagnosis: Mild, Obstructive Sleep Apnea-Hypopnea Syndrome AHI: 6.3 Reason for follow up: first compliance after device update Equipment type: CPAP Equipment obtained from: [employer] (getting supplies ok) Mask style: Nasal Backup mask available: No (keep her current mask when replaced as spare ) Last cushion change: not since new mask Type of Sleep Study: Polysomnography CPAP Compliance Data - Data Reviewed with Patient Average duration of nightly device use: 10H 8M Compliance rate %: 100 Current pressure setting (cmH2O): 5-15 Humidity settin Heated hose settin Average residual AHI: 3.0 Average large leak: 8M 16S Subjective Patient concerns: reports: mask leak noise, nasal congestion (mild ), other (mask dislodging about 3 times a week). denies: aerophagia, mask discomfort, air blowing in eyes, condensation in mask/hose, dry mouth, nose, throat, epistaxis Observed to snore while using device: No (single) Current pressure setting perceived as: comfortable On therapy, patient: reports: sleeping better, awakening more refreshed, being more awake and alert during the day, more rested overall, other. denies: drowsiness while driving Initial [place] Sleepiness Scale score: 15 Allergies and Home Medications Home medication list reviewed: No ( quetiapen has been reduced in half) Review of Systems Review of systems same as previous: Yes Physical Exam Height: 5 ft 7 in Impression and Plan 1. Obstructive Sleep Apnea-Hypopnea Syndrome, mild, with good treatment compliance and good apnea control. On CPAP therapy, the patient has better sleep quality and is more rested overall. I will also change her CPAP pressure to start at the 90% range of 8cmH20 and up to peak pressure use of [id number]. She was advised to use the ramp as needed. She is to contact me if problems with pressure change. Since she has a CPAP window cleaner, I informed her that there are FDA cautions about risks of use with some CPAP meat stuffer. She is advised to check out so can be informed if can continue to use. Since her CPAP mask is dislodging, I will order the new headgear style with adaptor for this problem. She states she is due for a new mask soon. Nasal congestion can be reduced with increasing the CPAP humidity as shown on sample device. The heated hose can be adjusted higher if condensation with higher humidity setting. Saline nasal spray sample was also given to use prior to CPAP to clear nasal secretions and wash off any nasal allergens to facilitate nasal breathing. In addition, a steamy shower before bed will often assist nasal drainage. Printed instructions given on how to change humidity and heated hose settings with rationale explaining why to change. Since she voiced needing extra sleep of about 10 hours since stroke in 2011, I informed her that 7-9 hours of sleep is needed for most people, some require slightly more or less. She definitely should follow up with PCP if increased need for sleep to see if any medical problem. She agreed with plan. She is unsure of weight but reviewed how significant weight change in weight will affect her apnea risks and CPAP pressure and symptoms. Patient's apnea severity and rationale for treatment to reduce apnea, improve sleep quality and reduce cardiovascular and cerebrovascular events was reviewed. I also reviewed the benefit of consistent device use of CPAP to her cerebrovascular disease. . * Changeauto CPAP pressure to 8-12 cmH2O * Notify me if snoring with mask or feeling that the pressure is too much or too little * Attempt to lose weight * Implement methods to reduce nasal congestion * Headgear with new adaptor * Call this office if any problems using CPAP * Return for follow up in 1 year , or sooner if concerns arise Visit Type: Telehealth Video (to minimize risk of Covid 19 exposure) Video Type: Eventable Patient Location: Home Location of Provider: Home Patient agrees and consents to this telehealth visit type: Yes Patient agrees to have their insurance billed: Yes Time Spent with Patient (minutes): 20 Provider Statement: I spent 100% of the Telehealth Video Call with the patient with greater than 50% spent counseling the patient and coordination of care.
== END 2019-12-31 15:51 | disposition home or self-care (01) ==
LOC: SC 15:50
PROVIDERS: ATTEND Nurse Practitioner Family
DX: G47.33 Obstructive sleep apnea (adult) (pediatric) (principal)

== ENCOUNTER 2020-03-05 15:22 | Outpatient (CLI) | payer MEDICARE ==
[2020-03-05 18:47] LABS: BASOPHILS % (AUTO) 0.2 %; EOSINOPHILS % (AUTO) 0.2 %; HGB - HEMOGLOBIN 13.1 g/dL (12.0-16.0); LYMPHOCYTES # (AUTO) 1.6 10^3/uL (1.5-3.5); LYMPHOCYTES % (AUTO) 24.9 %; MEAN CORPUSCULAR HEMOGLOBIN 28.1 pg (27.0-31.0); MEAN CORPUSCULAR HGB CONC 31.8 g/dL (32.0-36.0); MEAN CORPUSCULAR VOLUME 88.4 fL (81.0-99.0); MEAN PLATELET VOLUME 11.1 fL (7.9-10.8); MONOCYTES # (AUTO) 0.4 10^3/uL (0.0-1.0); MONOCYTES % (AUTO) 5.9 %; NEUTROPHILS # (AUTO) 4.5 10^3/uL (1.5-6.6); NEUTROPHILS % (AUTO) 68.3 %; PLT - PLATELET COUNT 232 10^3/uL (130-450); RED BLOOD COUNT 4.66 10^6/uL (4.20-5.40); WHITE BLOOD COUNT 6.6 x10^3/uL (4.8-10.8)
[2020-03-05 19:08] LABS: ALBUMIN 4.9 g/dL (3.2-5.5); ALBUMIN/GLOBULIN RATIO 1.6 (1.0-2.2); BILIRUBIN,TOTAL 0.4 mg/dL (0.2-1.0); CALCIUM 9.3 mg/dL (8.5-10.3); CREATININE 0.8 mg/dL (0.4-1.0)
[2020-03-05 19:20] LABS: THYROID STIMULATING HORMONE 20.08 uIU/mL (0.34-5.60)
[2020-03-05 19:22] LABS: FREE T3 2.55 pg/mL (2.5-3.9); FREE T4 (FREE THYROXINE) 0.82 ng/dL (0.58-1.64)
[2020-03-05 19:25] LABS: HB2 TOTAL 14.1 g/dL; HEMOGLOBIN A1C 0.57 g/dL; HEMOGLOBIN A1C % 5.9 % (4.6-6.2)
== END 2020-03-05 23:59 | disposition home or self-care (01) ==
LOC: LAB.WCP 15:22
PROVIDERS: ATTEND Family Medicine
DX: N20.0 Calculus of kidney (principal); I10 Essential (primary) hypertension; E03.9 Hypothyroidism, unspecified; E11.9 Type 2 diabetes mellitus without complications; G47.33 Obstructive sleep apnea (adult) (pediatric)
CPT/HCPCS: 36415; 80053; 83036; 84439; 84443; 84481; 85025

== ENCOUNTER 2020-04-07 11:37 | Outpatient (CLI) | payer MEDICARE | END 2020-04-07 11:38 | disposition critical access hospital (66) | LOC: EMS 11:37 | PROVIDERS: ATTEND Surgery | DX: M25.511 Pain in right shoulder (principal); M54.2 Cervicalgia; V00.811A Fall from moving wheelchair (powered), initial encounter; Y92.414 Local residential or business street as the place of occurrence of the external cause | CPT/HCPCS: A0425; A0429 ==

== ENCOUNTER 2020-05-22 07:40 | Outpatient (CLI) | payer MEDICARE ==
--- NOTE | 2020-05-22 16:17 | XRAY Report ---
PROCEDURE: Humerus RT INDICATIONS: RIGHT PROXIMAL HUMERUS FRACTURE TECHNIQUE: AP and lateral views of the humerus were acquired. COMPARISON: 04/07/2020 FINDINGS: Bones: Interval progress in healing of a nondisplaced humeral neck fracture. Developing sclerosis and early callus formation. No vertebral fractures or dislocations. Soft tissues: No suspicious soft tissue calcifications. IMPRESSION: Interval progress in healing of a nondisplaced humeral neck fracture. Reviewed by: Silvestre Grady MD on 05/22/2020 4:15 PM PDT Approved by: Silvestre Grady MD on 05/22/2020 4:15 PM PDT Station ID: [id number]
== END 2020-05-22 23:59 | disposition home or self-care (01) ==
LOC: DI.WCP 07:40
PROVIDERS: ATTEND Physician Assistant
DX: S42.294A Other nondisplaced fracture of upper end of right humerus, initial encounter for closed fracture (principal)

== ENCOUNTER 2020-07-17 08:00 | Outpatient (CLI) | payer MEDICARE ==
[2020-07-17 18:09] LABS: BASOPHILS % (AUTO) 0.2 %; LYMPHOCYTES # (AUTO) 1.6 10^3/uL (1.5-3.5); LYMPHOCYTES % (AUTO) 27.9 %; MEAN CORPUSCULAR HEMOGLOBIN 29.2 pg (27.0-31.0); MEAN CORPUSCULAR HGB CONC 32.3 g/dL (32.0-36.0); MEAN CORPUSCULAR VOLUME 90.6 fL (81.0-99.0); MEAN PLATELET VOLUME 11.1 fL (7.9-10.8); MONOCYTES # (AUTO) 0.4 10^3/uL (0.0-1.0); MONOCYTES % (AUTO) 6.3 %; NEUTROPHILS # (AUTO) 3.8 10^3/uL (1.5-6.6); NEUTROPHILS % (AUTO) 64.4 %; PLT - PLATELET COUNT 216 10^3/uL (130-450); RED BLOOD COUNT 4.45 10^6/uL (4.20-5.40); WHITE BLOOD COUNT 5.8 x10^3/uL (4.8-10.8)
[2020-07-17 18:50] LABS: FREE T3 2.94 pg/mL (2.5-3.9); THYROID STIMULATING HORMONE 9.05 uIU/mL (0.34-5.60)
[2020-07-17 18:52] LABS: FREE T4 (FREE THYROXINE) 0.59 ng/dL (0.58-1.64)
[2020-07-17 18:54] LABS: ALBUMIN 4.3 g/dL (3.2-5.5); ALBUMIN/GLOBULIN RATIO 1.3 (1.0-2.2); ALKALINE PHOSPHATASE 198 IU/L (42-121); ALT ALANINE AMINOTRANSFERASE 28 IU/L (10-60); AST ASPARTATE AMINOTRANSFERASE 25 IU/L (10-42); BILIRUBIN,TOTAL 0.6 mg/dL (0.2-1.0); BUN - BLOOD UREA NITROGEN 12 mg/dL (6-20); CALCIUM 9.3 mg/dL (8.5-10.3); CARBON DIOXIDE - CO2 26 mmol/L (21-32); CHLORIDE 102 mmol/L (101-111); CHOL/HDL RATIO 3.3 (<4.4); CHOLESTEROL 144 mg/dL; CREATININE 0.7 mg/dL (0.4-1.0); GLUCOSE 102 mg/dL (70-100); HDL CHOLESTEROL 43 mg/dL; LDL CHOLESTEROL,CALCULATED 78 mg/dL; LDL/HDL RATIO 1.8 (<4.4); SODIUM 138 mmol/L (135-145); TOTAL PROTEIN 7.5 g/dL (6.7-8.2); VLDL CHOLESTEROL 23 mg/dL
[2020-07-17 19:50] LABS: HEMOGLOBIN A1c% 5.9 % (4.27-6.07)
== END 2020-07-17 23:59 | disposition home or self-care (01) ==
LOC: LAB.WCP 08:00
PROVIDERS: ATTEND Family Medicine
DX: D64.9 Anemia, unspecified (principal); E03.9 Hypothyroidism, unspecified; E11.9 Type 2 diabetes mellitus without complications; I10 Essential (primary) hypertension; N20.0 Calculus of kidney; M54.16 Radiculopathy, lumbar region; Z68.41 Body mass index [BMI] 40.0-44.9, adult; I63.9 Cerebral infarction, unspecified; F41.8 Other specified anxiety disorders; G47.33 Obstructive sleep apnea (adult) (pediatric)
CPT/HCPCS: 36415; 80053; 80061; 82043; 82570; 83036; 83721; 84439; 84443; 84481; 85025

== ENCOUNTER 2020-09-19 14:45 | Outpatient (CLI) | payer MEDICARE | END 2020-09-19 14:46 | disposition home or self-care (01) | LOC: COV 14:45 | PROVIDERS: ATTEND Ophthalmology | DX: Z01.812 Encounter for preprocedural laboratory examination (principal); H25.11 Age-related nuclear cataract, right eye; E11.9 Type 2 diabetes mellitus without complications; Z20.822 Contact with and (suspected) exposure to COVID-19 ==

== ENCOUNTER 2020-09-25 05:57 | Day surgery (SDC) | payer MEDICARE ==
[2020-09-25] MEDS ORDERED: PROPARACAINE 0.5% OPHTH DROPS 15 ML ONE (06:08)
[2020-09-25] MEDS ORDERED: KETOROLAC 0.45% OPHTH DROPS ONE (06:09)
[2020-09-25] MEDS ORDERED: PHENYLEPHRINE 2.5% OPHTH 2 ML DROPS ONE (06:09)
[2020-09-25] MEDS ORDERED: LACTATED RINGERS 500 ML IV ONE ×2 (06:47→08:04)
[2020-09-25] MEDS ORDERED: MIDAZOLAM 2 MG/2 ML VIAL ONE (07:08)
[2020-09-25] MEDS ORDERED: EPINEPHrine 1 MG/ML AMP ONE (07:22)
[2020-09-25] MEDS ORDERED: TIMOLOL 0.5% OPHTH DROPS ONE (07:22)
[2020-09-25] MEDS ORDERED: TRIAMCIN/MOXIFLOX OPHTHALMIC 0.6 ML VIAL IO ONE ×2 (07:22→07:43)
[2020-09-25] MEDS ORDERED: VANCOMYCIN OPHTHALMI 8MG/0.8ML 8 MG/0.8 ML SYRINGE IO ONE ×3 (07:22→07:43)
[2020-09-25] MEDS ORDERED: BSS/LIDOCAINE/EPINEPHRINE 1 ML SYRINGE ONE ×2 (07:22→07:30)
[2020-09-25] MEDS ORDERED: BRIMONIDINE 0.2% OPHTH DROPS 5 ML ONE (07:22)
--- NOTE | 2020-09-25 07:24 | ANESTHESIA ---
Pre-Anesthesia VS, & Labs - Diagnosis R senile combined cataract - Procedure R extraction cataract Vital Signs: Temp Pulse Resp BP Pulse Ox 36.6 C 72 14 159/75 H 100 09/25/20 06:09 09/25/20 06:09 09/25/20 06:09 09/25/20 06:09 09/25/20 06:09 Height: 5 ft 7 in Weight (kg): 127 kg Body Mass Index: 43.8 BMI Classification: Morbidly Obese - NPO >8 hours - Is Patient ?: No - Lab Results Current Lab Results: Laboratory Tests 09/25/20 06:47: POC Whole Bld Glucose 115 H Lab results reviewed: Yes Home Medications and Allergies Citalopram [CeleXA] 20 mg PO DAILY 11/03/13 Levothyroxine [Synthroid] 200 mcg PO QDAC 11/03/13 Metformin HCl [Fortamet] 1,000 mg PO BID 11/03/13 lisinopriL [Prinivil] 10 mg PO DAILY 11/03/13 Atorvastatin [Lipitor] 40 mg PO DAILY 08/22/14 Aspirin 325 mg PO DAILY 04/23/20 Atorvastatin Calcium 40 mg PO QPM 04/23/20 Cholecalciferol [Vitamin D3] 1,000 unit PO DAILY 04/23/20 Liothyronine Sodium 10 mcg PO DAILY 04/23/20 Loratadine [Children's Claritin] 10 mg PO DAILY 04/23/20 [place] 3,6,9 Combination No.7 [[place] Dha] 1 tab PO BID 04/23/20 QUEtiapine [SEROquel] 50 mg PO QPM 04/23/20 Trazodone HCl 50 mg PO QPM 04/23/20 Allergies/Adverse Reactions: Allergies Allergy/AdvReac Type Severity Reaction Status Date / Time No Known Drug Allergies Allergy Verified 09/25/20 06:25 Anes History & Medical History - Anesthetic History Anesthesia Complications: reports: No previous complications Family history of Anesthesia Complications: Denies Family history of Malignant Hyperthermia: Denies - Medical History Cardiovascular: reports: Hypertension, High cholesterol Neuro: reports: CVA Musculoskeletal: reports: Osteoarthritis Endocrine/Autoimmune: reports: Type 2 diabetes, HyPOthyroidism Smoking Status: Never smoker - Surgical History Gynecologic: section Exam General: Alert, Oriented x3, Cooperative Dental: WNL Mouth Openin Fingerbreadth Neck Mobility: Normal Mallampati classification: II Thyromental Distance: 4-6 cm Respiratory: Lungs clear, Normal breath sounds, No respiratory distress Cardiovascular: Regular rate Extremities: Other (R sided paralysis, weakness, CVA hx) Neurological: Normal speech Mental/Cognitive Status: Alert/Oriented X3, Normal for patient Cognitive Status: Within normal limits Plan Anesthesia Type: MAC Consent for Procedure(s) Verified and Reviewed: Yes Code Status: Attempt Resuscitation ASA classification: 3-Severe systemic disease Is this case an emergency?: No
[2020-09-25] MEDS ORDERED: BRIMONIDINE 0.2% OPHTH DROPS 5 ML OPTH ONE (07:37)
[2020-09-25] MEDS ORDERED: EPINEPHrine 1 MG/ML AMP IR ONE (07:38)
[2020-09-25] MEDS ORDERED: CHONDR SULF/HYALURONATE SYRINGE IO ONE (07:38)
[2020-09-25] MEDS ORDERED: BSS/LIDOCAINE/EPINEPHRINE 1 ML SYRINGE IO ONE (07:39)
[2020-09-25] MEDS ORDERED: TIMOLOL 0.5% OPHTH DROPS OPTH ONE (07:39)
[2020-09-25] MEDS ORDERED: PROPARACAINE 0.5% OPHTH DROPS 15 ML EACHEYE ONE (07:43)
[2020-09-25 08:07] VITALS: BP 149/64
--- NOTE | 2020-09-25 08:59 | OPERATIVE REPORT ---
DATE OF SERVICE: 09/25/2020 Physician: Isaias Izaguirre MD PREOPERATIVE DIAGNOSIS: Visually significant cataract, right eye. This was her first cataract surge ry. POSTOPERATIVE DIAGNOSIS: Visually significant cataract, right eye. This was her first cataract surg delaney. PROCEDURE: Phacoemulsification with posterior chamber intraocular lens implant, right eye. SURGEON: Isaias Izaguirre MD ANESTHESIA: Monitored anesthesia care. COMPLICATIONS: None. OPERATIVE INDICATIONS: This is a 65-year-old woman with progressive vision loss in the right eye due to 4+ nuclear sclerotic cataract. Best corrected visual acuity was 20/40, with glare to 20/500 in t he right eye. Indications for surgery are overall decrease in vision, difficulty seeing words on a PlanStanuter screen, difficulty reading, difficulty seeing words closed caption or game scores on TV, diff iculty seeing street signs, difficulty driving in low light or at night, and difficulty with driving at night because of headlights from other vehicles. She was consented at length concerning risks and benefits of cataract surgery, after which she expressed a desire to proceed with surgery. OPERATIVE PROCEDURE: The patient was taken to OR #3 and placed under monitored anesthesia care. Abigail gical timeout was conducted confirming correct patient, correct procedure, and correct surgical site. She was given topical anesthesia, and prepped and draped in the usual sterile fashion. The eye was entered at the 12 and 9 o'clock positions. Intracameral Shugarcaine was injected into the anterior chamber, followed by Viscoat. A continuous-tear curvilinear capsulorrhexis was performed. Nucleus w as hydrodissected and phacoemulsified. The cortex was evacuated using automated infusion and aspirat ion. Provisc was injected in the capsular bag, and a 14.5 diopter intraocular lens inserted in the b ag. Infusion and aspiration were used to evacuate the viscoelastic materials. The eye was inflated to physiologic pressure using balanced salt solution and found to be watertight. Approximately 0.25 mL of a mixture of triamcinolone and moxifloxacin was injected transsclerally into the vitreous in th e inferotemporal quadrant. An additional 0.55 mL of a mixture of triamcinolone, moxifloxacin, and va ncomycin was injected subconjunctivally in the superior quadrant for infection and inflammation proph ylaxis. Wound integrity was checked with Weck-Nayeli sponges. Patient was taken from the operating andres m in good condition and given postoperative instructions. TD: 09/25/2020 08:06
--- NOTE | 2020-09-25 11:43 | ANESTHESIA POST OP EVALUATION ---
Anesthesia Post Eval - Post Anesthesia Eval Vitals: Last Vital Signs Temp 36.5 C 09/25/20 07:54 Pulse 63 09/25/20 08:06 Resp 14 09/25/20 08:06 BP 149/64 H 09/25/20 08:06 Pulse Ox 100 09/25/20 08:06 CV Function Including HR & BP: positive: Stable Pain Control: positive: Satisfactory Nausea & Vomiting: positive: Negative Mental Status: positive: Baseline Respiratory Status: Airway Patent Hydration Status: Satisfactory Anesthesia Complications: positive: None
== END 2020-09-25 05:58 | disposition home or self-care (01) ==
LOC: SDS 05:57
PROVIDERS: ATTEND Ophthalmology
DX: E11.36 Type 2 diabetes mellitus with diabetic cataract (principal); H25.11 Age-related nuclear cataract, right eye; I10 Essential (primary) hypertension; G47.33 Obstructive sleep apnea (adult) (pediatric); E03.9 Hypothyroidism, unspecified; E78.00 Pure hypercholesterolemia, unspecified; F32.9 Major depressive disorder, single episode, unspecified; E66.01 Morbid (severe) obesity due to excess calories; Z68.42 Body mass index [BMI] 45.0-49.9, adult; H91.90 Unspecified hearing loss, unspecified ear; Z79.84 Long term (current) use of oral hypoglycemic drugs; Z79.82 Long term (current) use of aspirin; Z87.891 Personal history of nicotine dependence; Z86.73 Personal history of transient ischemic attack (TIA), and cerebral infarction without residual deficits
CPT/HCPCS: 66984; A9270; J3490; J7120; V2632

== ENCOUNTER 2020-10-16 08:00 | Outpatient (CLI) | payer MEDICARE ==
[2020-10-16 13:43] LABS: CALCIUM 9.2 mg/dL (8.5-10.3); CREATININE 0.7 mg/dL (0.4-1.0)
[2020-10-16 13:52] LABS: THYROID STIMULATING HORMONE 6.73 uIU/mL (0.34-5.60)
[2020-10-16 13:54] LABS: FREE T3 2.59 pg/mL (2.5-3.9)
[2020-10-16 13:55] LABS: FREE T4 (FREE THYROXINE) 1.1 ng/dL (0.58-1.64)
[2020-10-16 14:53] LABS: HEMOGLOBIN A1c% 6.1 % (4.27-6.07)
== END 2020-10-16 23:59 | disposition home or self-care (01) ==
LOC: LAB.WCP 08:00
PROVIDERS: ATTEND Family Medicine
DX: I10 Essential (primary) hypertension (principal); E03.9 Hypothyroidism, unspecified; E11.9 Type 2 diabetes mellitus without complications
CPT/HCPCS: 36415; 80048; 83036; 84439; 84443; 84481

== ENCOUNTER 2021-07-27 08:00 | Outpatient (CLI) | payer MEDICARE ==
[2021-07-27 18:04] LABS: BASOPHILS % (AUTO) 0.1 %; EOSINOPHILS # (AUTO) 0.1 10^3/uL (0.0-0.7); EOSINOPHILS % (AUTO) 0.9 %; HCT - HEMATOCRIT 42.1 % (37.0-47.0); HGB - HEMOGLOBIN 13.6 g/dL (12.0-16.0); LYMPHOCYTES # (AUTO) 1.9 10^3/uL (1.5-3.5); LYMPHOCYTES % (AUTO) 24.4 %; MEAN CORPUSCULAR HEMOGLOBIN 29.4 pg (27.0-31.0); MEAN CORPUSCULAR HGB CONC 32.3 g/dL (32.0-36.0); MEAN CORPUSCULAR VOLUME 90.9 fL (81.0-99.0); MEAN PLATELET VOLUME 10.7 fL (7.9-10.8); MONOCYTES # (AUTO) 0.4 10^3/uL (0.0-1.0); MONOCYTES % (AUTO) 5.4 %; NEUTROPHILS # (AUTO) 5.4 10^3/uL (1.5-6.6); NEUTROPHILS % (AUTO) 68.2 %; PLT - PLATELET COUNT 270 10^3/uL (130-450); RED BLOOD COUNT 4.63 10^6/uL (4.20-5.40); RED CELL DISTRIBUTION WIDTH 13.2 % (12.0-15.0); WHITE BLOOD COUNT 7.9 x10^3/uL (4.8-10.8)
[2021-07-27 18:33] LABS: ALBUMIN/GLOBULIN RATIO 1.2 (1.0-2.2); ALKALINE PHOSPHATASE 168 IU/L (42-121); ALT ALANINE AMINOTRANSFERASE 32 IU/L (10-60); AST ASPARTATE AMINOTRANSFERASE 29 IU/L (10-42); BILIRUBIN,TOTAL 0.7 mg/dL (0.2-1.0); BUN - BLOOD UREA NITROGEN 19 mg/dL (6-20); CALCIUM 9.2 mg/dL (8.5-10.3); CARBON DIOXIDE - CO2 25 mmol/L (21-32); CHLORIDE 101 mmol/L (101-111); CHOL/HDL RATIO 3.4 (<4.4); CHOLESTEROL 145 mg/dL; CREATININE 0.7 mg/dL (0.4-1.0); GFR - MDRD 84 (>89); GLUCOSE 114 mg/dL (70-100); HDL CHOLESTEROL 43 mg/dL; LDL CHOLESTEROL,CALCULATED 77 mg/dL; LDL/HDL RATIO 1.8 (<4.4); POTASSIUM 3.9 mmol/L (3.5-5.0); SODIUM 138 mmol/L (135-145); TOTAL PROTEIN 7.4 g/dL (6.7-8.2); TRIGLYCERIDES 123 mg/dL; VLDL CHOLESTEROL 25 mg/dL
[2021-07-27 18:40] LABS: THYROID STIMULATING HORMONE 0.72 uIU/mL (0.34-5.60)
[2021-07-27 18:42] LABS: FREE T3 3.13 pg/mL (2.5-3.9); FREE T4 (FREE THYROXINE) 0.87 ng/dL (0.58-1.64)
[2021-07-27 21:26] LABS: ESTIMATED AVERAGE GLUCOSE 128 mg/dL (70-100); HEMOGLOBIN A1c% 6.1 % (4.27-6.07)
== END 2021-07-27 23:59 ==
LOC: LAB.WCP 08:00
PROVIDERS: ATTEND Family Medicine
DX: I69.351 Hemiplegia and hemiparesis following cerebral infarction affecting right dominant side (principal); D64.9 Anemia, unspecified; G47.33 Obstructive sleep apnea (adult) (pediatric); I10 Essential (primary) hypertension; E03.9 Hypothyroidism, unspecified; E78.5 Hyperlipidemia, unspecified; E11.9 Type 2 diabetes mellitus without complications
CPT/HCPCS: 36415; 80053; 80061; 82043; 82570; 83036; 83721; 84439; 84443; 84481; 85025

== ENCOUNTER 2021-08-05 19:16 | Outpatient (CLI) | payer MEDICARE | END 2021-08-05 19:17 | disposition EMS.NT | LOC: EMS 19:16 | DX: K59.00 Constipation, unspecified (principal); R73.9 Hyperglycemia, unspecified ==

== ENCOUNTER 2022-06-26 10:59 | Outpatient (CLI) | payer MEDICARE | END 2022-06-26 23:59 | disposition EMS.NT | LOC: EMS 10:59 | DX: Z03.89 Encounter for observation for other suspected diseases and conditions ruled out (principal) ==

== ENCOUNTER 2022-07-12 11:55 | Outpatient (CLI) | payer MEDICARE ==
[2022-07-12 18:31] LABS: CREATININE 0.7 mg/dL (0.4-1.0); POTASSIUM 3.9 mmol/L (3.5-5.0)
[2022-07-12 18:48] LABS: THYROID STIMULATING HORMONE 2.49 uIU/mL (0.34-5.60)
[2022-07-12 18:50] LABS: FREE T3 2.66 pg/mL (2.5-3.9); FREE T4 (FREE THYROXINE) 0.75 ng/dL (0.58-1.64)
[2022-07-12 21:24] LABS: ESTIMATED AVERAGE GLUCOSE 134 mg/dL (70-100); HEMOGLOBIN A1c% 6.3 % (4.27-6.07)
== END 2022-07-12 11:56 | disposition home or self-care (01) ==
LOC: LAB.N 11:55
PROVIDERS: ATTEND Family Medicine
DX: E03.9 Hypothyroidism, unspecified (principal); E78.5 Hyperlipidemia, unspecified; E11.9 Type 2 diabetes mellitus without complications
CPT/HCPCS: 36415; 80048; 83036; 84439; 84443; 84481

== ENCOUNTER 2022-10-11 11:09 | Outpatient (CLI) | payer MEDICARE ==
[2022-10-11 17:39] LABS: CALCIUM 9.1 mg/dL (8.5-10.3); CREATININE 0.7 mg/dL (0.4-1.0); POTASSIUM 3.9 mmol/L (3.5-5.0)
[2022-10-11 17:53] LABS: CREATININE,URINE 195.7 mg/dL; MICROALBUM/CREATININE RATIO,UR 16.4 ug/mg (<30.0); MICROALBUMIN,URINE 3.2 mg/dL (0-300.0)
[2022-10-11 20:42] LABS: ESTIMATED AVERAGE GLUCOSE 160 mg/dL (70-100); HEMOGLOBIN A1c% 7.2 % (4.27-6.07)
== END 2022-10-11 11:10 | disposition home or self-care (01) ==
LOC: LAB.N 11:09
PROVIDERS: ATTEND Family Medicine
DX: E11.9 Type 2 diabetes mellitus without complications (principal)
CPT/HCPCS: 36415; 80048; 82043; 82570; 83036

== ENCOUNTER 2022-10-19 13:29 | Outpatient (CLI) | payer MEDICARE ==
--- NOTE | 2022-11-03 12:36 | Mammography Report ---
BILATERAL DIGITAL SCREENING MAMMOGRAM: 10/19/2022 CLINICAL: Routine screening. Comparison is made to exams dated: 01/25/2018 mammogram, 06/21/2016 mammogram, and 05/13/2011 mammogra m - [facility]. There are scattered areas of fibroglandular density in both breasts (category b / 25%-50% glandular t issue). There is a new irregular asymmetry in the right breast anterior depth inferior region seen on the med iolateral oblique view only. No other significant masses, calcifications, or other findings are seen in either breast. IMPRESSION: INCOMPLETE: NEEDS ADDITIONAL IMAGING EVALUATION The new irregular asymmetry in the right breast is most likely related to suboptimal positioning, but remains indeterminate. Additional views with possible ultrasound are recommended. Based on the Tyrer Cuzick model (a risk assessment model) the patients lifetime risk is 6.1% and her 10 year risk is 2.9%. According to the ACR, ACS, and NCCN guidelines, an annual breast MRI exam sam g with mammogram is recommended if the patients lifetime risk is 20% or greater. This exam was interpreted at Station ID: [id number]. NOTE: For mammograms, a report in lay terms will be sent to the patient. Approximately 15% of breast malignancies will not be visualized mammographically. In the management of a palpable breast mass, a negative mammogram must not discourage biopsy of a clinically suspicious lesion. Electronically Signed By: Irma hackett/:11/03/2022 07:48:16 ACR BI-RADS Category 0: Incomplete 3340F PARENCHYMAL PATTERN: (A) - The breast(s) demonstrate(s) scattered fibroglandular densities. BI-RADS CATEGORY: (0) - 0 Mammo and [place] [id number] Immediate follow-up LATERALITY: (B)
== END 2022-10-19 13:30 | disposition home or self-care (01) ==
LOC: DI.N 13:29
DX: Z12.31 Encounter for screening mammogram for malignant neoplasm of breast (principal); R92.8 Other abnormal and inconclusive findings on diagnostic imaging of breast

== ENCOUNTER 2022-11-12 10:38 | Outpatient (CLI) | payer MEDICARE ==
--- NOTE | 2022-11-12 15:32 | DEXA Report ---
PROCEDURE: Dexa Spine and/or Hip INDICATIONS: POST MENOPAUSAL TECHNIQUE: Dual energy x-ray absorptiometry (DXA) was performed on a [employer] System. Regions measur ed are the AP Spine, femoral neck, and if needed forearm. COMPARISON: 01/25/2018 FINDINGS: Lumbar Spine: Bone Mineral Density 1.410 g/cm/cm,T score 2.0, normal. Previous T score 2.4. Left Femoral Neck: Bone Mineral Density 0.895 g/cm/cm, T score -1.0, normal. Previous T score -1.3. Left Hip: Bone Mineral Density 0.915 g/cm/cm,T score -0.7, normal. Previous T score -0.7. (T score greater or equal to -1.0: NORMAL) (T score from -1.1 to -2.4: OSTEOPENIA) (T score less than or equal to -2.5 to: OSTEOPOROSIS) Impression: Normal bone mineral density, T-score at the lower limit for normal. Patients with diagnosis of osteoporosis or osteopenia should have regular bone mineral density assess ment. For those eligible for Medicare, routine testing is allowed once every 2 years. Testing frequ ency can be increased for patients who have rapidly progressing disease or for those who are receivin g medical therapy to restore bone mass. Reviewed by: Patrick Johnson MD on 11/12/2022 3:31 PM PDT Approved by: Patrick Johnson MD on 11/12/2022 3:31 PM PDT Station ID: [id number]
== END 2022-11-12 10:39 | disposition home or self-care (01) ==
LOC: DI 10:38
PROVIDERS: ATTEND Family Medicine
DX: Z78.0 Asymptomatic menopausal state (principal)

== ENCOUNTER 2022-11-23 10:42 | Outpatient (CLI) | payer MEDICARE ==
--- NOTE | 2022-11-24 10:26 | Mammography Report ---
UNILATERAL RIGHT DIGITAL DIAGNOSTIC MAMMOGRAM 3D/2D WITH SPOT COMPRESSION: 11/23/2022 CLINICAL: Patient returns today to evaluate an asymmetry in the right breast. Comparison is made to exams dated: 10/19/2022 mammogram, 01/25/2018 mammogram, and 06/21/2016 mammogra m - [facility]. There are scattered areas of fibroglandular density in the right breast (category b / 25%-50% glandul ar tissue). There is a mass in the right breast at 12 o'clock anterior depth. No other significant masses or calcifications are seen in the breast. IMPRESSION: INCOMPLETE: NEEDS ADDITIONAL IMAGING EVALUATION The mass in the right breast needs additional evaluation. A targeted ultrasound is recommended and will immediately follow. Based on the Tyrer Cuzick model (a risk assessment model) the patients lifetime risk is 6.1% and her 10 year risk is 2.9%. According to the ACR, ACS, and NCCN guidelines, an annual breast MRI exam sam g with mammogram is recommended if the patients lifetime risk is 20% or greater. This exam was interpreted at Station ID: [id number]. NOTE: For mammograms, a report in lay terms will be sent to the patient. Approximately 15% of breast malignancies will not be visualized mammographically. In the management of a palpable breast mass, a negative mammogram must not discourage biopsy of a clinically suspicious lesion. Electronically Signed By: Bharat Andrade M.D. slc/:11/23/2022 11:21:05 ACR BI-RADS Category 0: Incomplete 3340F PARENCHYMAL PATTERN: (A) - The breast(s) demonstrate(s) scattered fibroglandular densities. BI-RADS CATEGORY: (0) - 0 Ultrasound [id number] Immediate follow-up LATERALITY: (B)
--- NOTE | 2022-11-24 10:26 | Ultrasound Report ---
LIMITED ULTRASOUND OF RIGHT BREAST: 11/23/2022 CLINICAL: Patient returns today to evaluate a focal asymmetry in the right breast. Comparison is made to exams dated: 11/23/2022 mammogram, 10/19/2022 mammogram, and 01/25/2018 mammogram - [facility]. Color flow and real-time ultrasound of the right breast 10-12 o'clock region were performed. Man sc jorge images of the real-time examination were reviewed. There is a benign 0.6 cm x 0.6 cm x 0.4 cm oval simple cyst in the right breast at 12 o'clock middle depth 5 cm from the nipple. This oval simple cyst is anechoic. This correlates with mammography fin dings. Color flow imaging demonstrates that there is no vascularity present. IMPRESSION: BENIGN There is no sonographic evidence of malignancy. The 0.6 cm simple cyst in the right breast is benign. A 1 year screening mammogram is recommended. Exam findings were conveyed to the patient. This exam was interpreted at Station ID: [id number]. Electronically Signed By: Bharat Andrade M.D. slc/:11/23/2022 11:41:06 Ultrasound BI-RADS: 2 Benign BI-RADS CATEGORY: (2) - 2 Mammogram [id number] 1 year screening LATERALITY: (B)
== END 2022-11-23 10:43 | disposition home or self-care (01) ==
LOC: DI 10:42
PROVIDERS: ATTEND Family Medicine
DX: N60.01 Solitary cyst of right breast (principal)

== ENCOUNTER 2022-12-27 08:00 | Outpatient (CLI) | payer MEDICARE ==
[2022-12-27 14:20] LABS: HCT - HEMATOCRIT 42.1 % (37.0-47.0); HGB - HEMOGLOBIN 13.8 g/dL (12.0-16.0); LYMPHOCYTES # (AUTO) 1.6 10^3/uL (1.5-3.5); LYMPHOCYTES % (AUTO) 28.1 %; MEAN CORPUSCULAR HEMOGLOBIN 29.1 pg (27.0-31.0); MEAN CORPUSCULAR HGB CONC 32.8 g/dL (32.0-36.0); MEAN CORPUSCULAR VOLUME 88.6 fL (81.0-99.0); MEAN PLATELET VOLUME 9.8 fL (7.9-10.8); MONOCYTES # (AUTO) 0.4 10^3/uL (0.0-1.0); MONOCYTES % (AUTO) 6.3 %; NEUTROPHILS # (AUTO) 3.7 10^3/uL (1.5-6.6); NEUTROPHILS % (AUTO) 65.4 %; PLT - PLATELET COUNT 199 10^3/uL (130-450); RED BLOOD COUNT 4.75 10^6/uL (4.20-5.40); RED CELL DISTRIBUTION WIDTH 13.1 % (12.0-15.0); WHITE BLOOD COUNT 5.6 x10^3/uL (4.8-10.8)
[2022-12-27 14:34] LABS: ALBUMIN 4.1 g/dL (3.2-5.5); ALBUMIN/GLOBULIN RATIO 1.4 (1.0-2.2); ALKALINE PHOSPHATASE 155 IU/L (42-121); ALT ALANINE AMINOTRANSFERASE 21 IU/L (10-60); AST ASPARTATE AMINOTRANSFERASE 21 IU/L (10-42); BILIRUBIN,TOTAL 0.8 mg/dL (0.2-1.0); BUN - BLOOD UREA NITROGEN 16 mg/dL (6-20); CALCIUM 9.2 mg/dL (8.5-10.3); CARBON DIOXIDE - CO2 30 mmol/L (21-32); CHLORIDE 102 mmol/L (101-111); CHOL/HDL RATIO 2.8 (<4.4); CHOLESTEROL 135 mg/dL; CREATININE 0.8 mg/dL (0.4-1.0); GFR - MDRD 72 (>89); GLUCOSE 94 mg/dL (70-100); HDL CHOLESTEROL 49 mg/dL; LDL CHOLESTEROL,CALCULATED 71 mg/dL; LDL/HDL RATIO 1.4 (<4.4); POTASSIUM 3.9 mmol/L (3.5-5.0); SODIUM 139 mmol/L (135-145); TOTAL PROTEIN 7.1 g/dL (6.7-8.2); TRIGLYCERIDES 77 mg/dL; VLDL CHOLESTEROL 15 mg/dL
[2022-12-27 14:46] LABS: THYROID STIMULATING HORMONE 38.48 uIU/mL (0.34-5.60)
[2022-12-27 15:42] LABS: FREE T4 (FREE THYROXINE) 0.46 ng/dL (0.58-1.64)
[2022-12-27 20:52] LABS: ESTIMATED AVERAGE GLUCOSE 131 mg/dL (70-100); HEMOGLOBIN A1c% 6.2 % (4.27-6.07)
== END 2022-12-27 23:59 | disposition home or self-care (01) ==
LOC: LAB 08:00
PROVIDERS: ATTEND Family Medicine
DX: I10 Essential (primary) hypertension (principal); G47.9 Sleep disorder, unspecified; R19.7 Diarrhea, unspecified; E66.01 Morbid (severe) obesity due to excess calories; I69.351 Hemiplegia and hemiparesis following cerebral infarction affecting right dominant side; D64.9 Anemia, unspecified; E78.5 Hyperlipidemia, unspecified; E11.9 Type 2 diabetes mellitus without complications
CPT/HCPCS: 36415; 80053; 80061; 83036; 83721; 84439; 84443; 85025

== ENCOUNTER 2023-02-03 10:10 | Day surgery (SDC) | payer MEDICARE ==
[2023-02-03] MEDS ORDERED: PROPOFOL 500 MG/50 ML 500 MG/50 ML VIAL ONE (10:12)
[2023-02-03] MEDS ORDERED: LACTATED RINGERS 1,000 ML IV ONE ×2 (10:27→12:21)
--- NOTE | 2023-02-03 10:32 | ANESTHESIA ---
Pre-Anesthesia VS, & Labs - Diagnosis + cologuard - Procedure colonoscopy Height: 5 ft 11 in Weight (kg): 116 kg Body Mass Index: 35.6 BMI Classification: Obese - NPO >8 hours Last Fluid Intake: am prep - Is Patient ?: No - Lab Results Lab results reviewed: Yes Home Medications and Allergies Citalopram [CeleXA] 20 mg PO DAILY 11/03/13 Levothyroxine [Synthroid] 200 mcg PO QDAC 11/03/13 Metformin HCl [Fortamet] 1,000 mg PO BID 11/03/13 lisinopriL [Prinivil] 10 mg PO DAILY 11/03/13 Atorvastatin [Lipitor] 40 mg PO DAILY 08/22/14 Aspirin 325 mg PO DAILY 04/23/20 Atorvastatin Calcium 40 mg PO QPM 04/23/20 Cholecalciferol [Vitamin D3] 1,000 unit PO DAILY 04/23/20 Liothyronine Sodium 10 mcg PO DAILY 04/23/20 Loratadine [Children's Claritin] 10 mg PO DAILY 04/23/20 [place] 3,6,9 Combination No.7 [[place] Dha] 1 tab PO BID 04/23/20 QUEtiapine [SEROquel] 50 mg PO QPM 04/23/20 Trazodone HCl 50 mg PO QPM 04/23/20 Allergies/Adverse Reactions: Allergies Allergy/AdvReac Type Severity Reaction Status Date / Time No Known Drug Allergies Allergy Verified 09/25/20 06:25 Anes History & Medical History - Anesthetic History Anesthesia Complications: reports: No previous complications Family history of Anesthesia Complications: Denies Family history of Malignant Hyperthermia: Denies - Medical History Cardiovascular: reports: Hypertension, High cholesterol Neuro: reports: CVA Musculoskeletal: reports: Osteoarthritis, Other (cane asssit with walking) Endocrine/Autoimmune: reports: Type 2 diabetes Smoking Status: Never smoker History of Cancer?: No - Surgical History Eyes Ears Nose Throat (EENT): reports: Cataracts (Right) Gynecologic: reports: section Exam General: Alert, Oriented x3, Cooperative Dental: WNL Mouth Openin Fingerbreadth Neck Mobility: Normal Mallampati classification: II Thyromental Distance: 4-6 cm Respiratory: Lungs clear, Normal breath sounds, No respiratory distress Cardiovascular: Regular rate Neurological: Normal speech Mental/Cognitive Status: Alert/Oriented X3, Normal for patient Cognitive Status: Within normal limits Plan Anesthesia Type: Total IV Consent for Procedure(s) Verified and Reviewed: Yes Code Status: Attempt Resuscitation ASA classification: 3-Severe systemic disease Is this case an emergency?: No
[2023-02-03] MEDS ORDERED: MIDAZOLAM 2 MG/2 ML VIAL ONE (10:41)
[2023-02-03] MEDS ORDERED: PROPOFOL 200 MG/20 ML VIAL IVP ONE (12:02)
--- NOTE | 2023-02-03 12:33 | ANESTHESIA POST OP EVALUATION ---
Anesthesia Post Eval - Post Anesthesia Eval Vitals: Last Vital Signs Temp 36 C L 02/03/23 12:32 Pulse 75 02/03/23 12:32 Resp 16 02/03/23 12:32 BP 124/69 02/03/23 12:32 Pulse Ox 99 02/03/23 12:32 O2 Flow Rate CV Function Including HR & BP: Stable Pain Control: Satisfactory Nausea & Vomiting: Negative Mental Status: Baseline Respiratory Status: Airway Patent Hydration Status: Satisfactory Anesthesia Complications: None
[2023-02-03 12:37] VITALS: BP 124/69
== END 2023-02-03 10:11 | disposition home or self-care (01) ==
LOC: SDS 10:10
PROVIDERS: ATTEND Surgery
PROC: 0DBP8ZZ Excision of Rectum, Via Natural or Artificial Opening Endoscopic (ICD-10-PCS; principal; 2023-02-03 11:30)
DX: Z12.11 Encounter for screening for malignant neoplasm of colon (principal); R19.5 Other fecal abnormalities; K62.1 Rectal polyp; E66.9 Obesity, unspecified; Z68.35 Body mass index [BMI] 35.0-35.9, adult; E11.9 Type 2 diabetes mellitus without complications; Z79.84 Long term (current) use of oral hypoglycemic drugs
CPT/HCPCS: 45385; J7120

== ENCOUNTER 2023-03-06 14:47 | Outpatient (CLI) | payer MEDICARE | END 2023-03-06 23:59 | disposition EMS.NT | LOC: EMS 14:47 | DX: Z03.89 Encounter for observation for other suspected diseases and conditions ruled out (principal) ==

== ENCOUNTER 2023-09-28 09:59 | Outpatient (CLI) | payer MEDICARE ==
[2023-09-28 10:53] LABS: CALCIUM 9.4 mg/dL (8.5-10.3); CREATININE 0.7 mg/dL (0.6-1.3); POTASSIUM 3.9 mmol/L (3.5-4.5)
[2023-09-28 11:00] LABS: THYROID STIMULATING HORMONE 0.05 uIU/mL (0.34-5.60)
[2023-09-28 11:32] LABS: ESTIMATED AVERAGE GLUCOSE 111 mg/dL (70-100); HEMOGLOBIN A1c% 5.5 % (4.27-6.07)
== END 2023-09-28 10:00 | disposition home or self-care (01) ==
LOC: LAB 09:59
PROVIDERS: ATTEND Family Medicine
DX: E03.9 Hypothyroidism, unspecified (principal)
CPT/HCPCS: 36415; 80048; 83036; 84439; 84443; 84481

== ENCOUNTER 2023-11-15 10:30 | Outpatient (CLI) | payer MEDICARE ==
--- NOTE | 2023-11-15 12:09 | XRAY Report ---
PROCEDURE: Knee 4 View RT INDICATIONS: RIGHT KNEE PAIN TECHNIQUE: 4 views of the knee(s) were acquired. COMPARISON: None. FINDINGS: Bones: No fractures or dislocations. Moderate to severe tricompartmental osteoarthritis is seen mor e notably medial femoral tibial compartment. No significant patellar subluxation. No suspicious bony lesions. Soft tissues: Small suprapatellar knee joint effusion. No suspicious soft tissue calcifications or m asses. IMPRESSION: No acute bony abnormality. Moderate to severe tricompartmental osteoarthritis more notably medial femoral tibial compartment. Sm all joint effusion. Reviewed by: Ashutosh Lee MD on 11/15/2023 12:07 PM PDT Approved by: Ashutosh Lee MD on 11/15/2023 12:07 PM PDT Station ID: [id number]
== END 2023-11-15 23:59 | disposition home or self-care (01) ==
LOC: DI.WOS 10:30
PROVIDERS: ATTEND Orthopaedic Surgery
DX: M17.11 Unilateral primary osteoarthritis, right knee (principal); M25.461 Effusion, right knee

== ENCOUNTER 2024-04-09 08:49 | Outpatient (CLI) | payer MEDICARE | END 2024-04-09 23:59 | disposition EMS.NT | LOC: EMS 08:49 | DX: Z03.89 Encounter for observation for other suspected diseases and conditions ruled out (principal) ==